=== PATIENT | female | born 1965 | race Caucasian/White ===

== ENCOUNTER → 2016-06-19 | Emergency (ER) | payer BC ==
[~2016-06-19] MED LIST: FAMOTIDINE 20 MG/50 ML IVPB 20 MG in PREMIX 50 IVPB ONE; FAMOTIDINE 20 MG/50 ML IVPB 50 ML IVPB ONE; MAG HYDROX/AL HYDROX/SIMETH 355 ML ORAL.SUSP PO ONE; ONDANSETRON 4 MG/2 ML VIAL IVPB ONE; ONDANSETRON 4 MG/2 ML VIAL ONE; SODIUM CHLORIDE 1,000 ML IV ONE
[2016-06-19 14:10] VITALS: BMI 28.5
[2016-06-19 15:18] LABS: BASOPHIL 0.4 % (0-2.0); EOSINOPHIL 0.5 % (0-4.5); MCH 28.1 pg (25.7-33.7); MCHC 32.7 g/dl (32.0-36.0); MEAN PLT VOLUME 8.6 fl (7.5-11.1); NEUTROPHILS 54.7 % (42.8-82.8); PLATELET COUNT 262 K/MM3 (134-434); RDW 15.5 % (11.6-15.6); WHITE BLOOD COUNT 6.9 K/mm3 (4.0-10.0)
[2016-06-19 15:40] LABS: ALBUMIN 3.7 g/dl (3.4-5.0); ANION GAP 7 (8-16); CALCIUM 8.8 mg/dL (8.5-10.1); CO2 30 mmol/L (21-32); CREATININE 0.9 mg/dL (0.55-1.02); GLUCOSE,RANDOM 90 mg/dL (74-106); SGOT/AST 15 U/L (15-37); SGPT/ALT 14 U/L (12-78)
[2016-06-19 15:44] LABS: ALK PHOS 107 U/L (45-117); BILIRUBIN,TOTAL 0.3 mg/dL (0.2-1.0); TOT PROT 7.3 g/dl (6.4-8.2); TROPONIN I < 0.02 ng/ml (0.00-0.05)
--- NOTE | 2016-06-19 16:03 | EKG ---
Test Reason : Blood Pressure : / mmHG Vent. Rate : 080 BPM Atrial Rate : 080 BPM P-R Int : 142 ms QRS Dur : 074 ms QT Int : 380 ms P-R-T Axes : 050 021 055 degrees QTc Int : 438 ms NORMAL SINUS RHYTHM NORMAL ECG NO PREVIOUS ECGS AVAILABLE Confirmed by DAVIS REY MD ([id number]) on 06/19/2016 4:03:34 PM Referred By: Confirmed By:DAVIS REY MD
--- NOTE | 2016-06-19 16:23 | PDOC ---
History of Present Illness <Zack Schroeder - Last Filed: 06/19/16 19:17> - General History Source: Patient Exam Limitations: No Limitations - History of Present Illness Initial Comments: 06/19/16 16:33 The patient is a 51-year-old woman, with a past medical history of hypertension and prediabetes who presents to the emergency department via walk-in for further evaluation of lightheadedness. Patient states she has been feeling lightheaded with associated abdominal pain/distension and nausea, specifically after eating. She recently moved from [place], approximately 1 month ago. She had a scheduled cholecystectomy but cancelled it, as she was in the process of moving to [place]. She is staying at her friend's house, but admits she is timid to perform bowel movements at her friend's house but she has been passing gas. She also reports endorsing an intermittent, non-productive cough and increased thirst. Patient states that her cough is slightly alleviated after taking cough drops. No recent fevers, chills, generalized weakness. No chest pain, palpitations, syncope, headache. No vomiting. No urinary symptoms. Allergies: No Known Drug Allergies. Past Surgical History: None reported. Social History: No tobacco, ETOH and recreational drug use. Primary Care Physician: N/A. Patient just moved from [place] 1 month ago. <Sandra Breen - Last Filed: 06/19/16 19:28> - General Chief Complaint: Lightheaded Stated Complaint: DIZZINESS VOMITING SOB Time Seen by Provider: 06/19/16 14:05 Past History - Past Medical History Diabetes: Yes (prediabetes) HTN: Yes - Psycho/Social/Smoking Cessation Hx Suicidal Ideation: No Smoking History: Never smoked <Zack Schroeder - Last Filed: 06/19/16 19:17> <Sandra Breen - Last Filed: 06/19/16 19:28> - Past Medical History Allergies/Adverse Reactions: Allergies Allergy/AdvReac Type Severity Reaction Status Date / Time animal dander Allergy Verified 06/19/16 14:05 Home Medications: Ambulatory Orders Mag Hydrox/Al Hydrox/Simeth [Mylanta Suspension -] 30 ml PO Q6H #1 bottle Ranitidine [Zantac -] 150 mg PO ONCE #14 tablet 06/19/16 Review of Systems - Review of Systems Able to Perform ROS?: Yes Comments:: 06/19/16 16:33 CONSTITUTIONAL: No reported: Fever, Chills, Diaphoresis, Generalized Weakness, Malaise, Loss of Appetite HEENT: No reported: Rhinorrhea, Nasal Congestion, Throat Pain, Throat Swelling, Difficulty Swallowing, Mouth Swelling, Ear Pain, Eye Pain, Visual Changes CARDIOVASCULAR: Reported: Lightheadedness. Dizziness. No reported: Chest Pain, Syncope, Palpitations, Irregular Heart Rate, Peripheral Edema RESPIRATORY: No reported: Cough, Shortness of Breath, SOB with Exertion, Orthopnea, Wheezing , Stridor, Hemoptysis GASTROINTESTINAL: Reported: Abdominal Pain. Abdominal Distenstion. No reported: Nausea, Vomiting , Diarrhea, Constipation, Melena, Hematochezia GENITOURINARY: No reported: Dysuria, Frequency, Urgency, Hesitancy, Flank Pain, Genital Pain MUSCULOSKELETAL: No reported: Myalgia, Arthralgia, Joint Swelling, Back pain, Neck Pain SKIN: No reported: Rash, Itching, Pallor HEMEATOLOGIC/IMMUNOLOGIC: No reported: Easy Bleeding, Easy Bruising, Lymphadenopathy, Frequent infections ENDOCRINE: No reported: Unexplained Weight Gain, Unexplained Weight Loss, Heat Intolerance , Cold Intolerance NEUROLOGIC: Reported: Lightheadedness. Dizziness. No reported: Headache, Focal Weakness, Paresthesias, Vertigo, Unsteady Gait, Seizure, Mental Status Changes, Incontinence PSYCHIATRIC: No reported: Anxiety, Depression <Sandra Breen - Last Filed: 06/19/16 19:28> *Physical Exam - Vital Signs Last Vital Signs Temp Pulse Resp BP Pulse Ox 98.6 F 89 16 143/102 97 06/19/16 14:05 06/19/16 14:05 06/19/16 14:05 06/19/16 14:05 06/19/16 14:05 <Zack Schroeder - Last Filed: 06/19/16 19:17> - Vital Signs Last Vital Signs Temp Pulse Resp BP Pulse Ox 98.6 F 89 16 143/102 97 06/19/16 14:05 06/19/16 14:05 06/19/16 14:05 06/19/16 14:05 06/19/16 14:05 - Physical Exam Comments: 06/19/16 16:33 GENERAL: The patient is awake, alert, and fully oriented, Nontoxic - in no acute distress. HEAD: Normocephalic, atraumatic. EYES: extraocular movements intact, sclera anicteric, conjunctiva clear. ENT: Normal voice, Moist mucous membranes. NECK: Normal range of motion, supple LUNGS: Breath sounds equal, clear to auscultation bilaterally. No wheezes, no rhonchi, no rales. HEART: Regular rate and rhythm, without murmur, rub or gallop. ABDOMEN: Soft, mild suprapubic tenderness to palpation. normoactive bowel sounds. No guarding, no rebound.No CVA tenderness EXTREMITIES: Normal range of motion, no edema. No clubbing or cyanosis. No cords, erythema, or tenderness. NEUROLOGICAL: No facial assymetry, Normal speech, PSYCH: Normal mood, normal affect. SKIN: Warm, Dry, normal turgor. <Sandra Breen - Last Filed: 06/19/16 19:28> Heart Score/ECG Review - ECG Impressions Comment:: 06/19/16 16:29 Twelve-lead EKG was performed and reviewed by me. There is normal sinus rhythm with a normal rate. Rate of 80 The axis is normal. The intervals are normal. There is normal R wave progression There are no ST or T wave abnormalities. Impression: Normal twelve-lead EKG <Zack Schroeder - Last Filed: 06/19/16 19:17> ED Treatment Course - LABORATORY CBC & Chemistry Diagram: 06/19/16 14:44 06/19/16 14:44 - ADDITIONAL ORDERS Additional order review: Laboratory Results 06/19/16 06/19/16 14:44 14:44 Sodium 138 Potassium 4.1 Chloride 101 Carbon Dioxide 30 Anion Gap 7 L BUN 12 Creatinine 0.9 Creat Clearance w eGFR > 60 Random Glucose 90 Calcium 8.8 Total Bilirubin 0.3 AST 15 ALT 14 Alkaline Phosphatase 107 Creatine Kinase 76 Troponin I < 0.02 Total Protein 7.3 Albumin 3.7 Lipase 207 Urine HCG, Qual Negative 06/19/16 14:44 RBC 4.68 MCV 86.0 MCHC 32.7 RDW 15.5 MPV 8.6 Neutrophils % 54.7 Lymphocytes % 38.0 Monocytes % 6.4 Eosinophils % 0.5 Basophils % 0.4 <Zack Schroeder - Last Filed: 06/19/16 19:17> - LABORATORY CBC & Chemistry Diagram: 06/19/16 14:44 06/19/16 14:44 - ADDITIONAL ORDERS Additional order review: Laboratory Results 06/19/16 06/19/16 14:44 14:44 Sodium 138 Potassium 4.1 Chloride 101 Carbon Dioxide 30 Anion Gap 7 L BUN 12 Creatinine 0.9 Creat Clearance w eGFR > 60 Random Glucose 90 Calcium 8.8 Total Bilirubin 0.3 AST 15 ALT 14 Alkaline Phosphatase 107 Creatine Kinase 76 Troponin I < 0.02 Total Protein 7.3 Albumin 3.7 Lipase 207 Urine HCG, Qual Negative 06/19/16 14:44 RBC 4.68 MCV 86.0 MCHC 32.7 RDW 15.5 MPV 8.6 Neutrophils % 54.7 Lymphocytes % 38.0 Monocytes % 6.4 Eosinophils % 0.5 Basophils % 0.4 - RADIOLOGY Radiograph Interpretation: 06/19/16 17:50 EXAM: RAD/CHEST X-RAY PORTABLE IMPRESSION: A frontal view of the chest was obtained. The cardiac silhouette is within normal limits in size. The lung is clear. Mediastinum and visualized osseous structures appear intact . <Sandra Breen - Last Filed: 06/19/16 19:28> Medical Decision Making - Medical Decision Making 06/19/16 16:20 51y F hx of cholelithiasis, pre diabetes, htn presents with feeling dizzy, nausesus and a bloating abdominal pain sensation - no associated fever/chills, cp, sob, focal neurolgic sypmtoms, leg swelling, diarrhea. on exam pt well apaering in no distress abdomen noted for mild suprapubic tenderness will obtain ua to r/o uti will give zofran, fluids willr eassess pt also endorses some cough - will obtain cxr to r/o mass/pna A portion of this note was documented by scribe services under my direction. I have reviewed the details of the note, within reason, and agree with the documentation with the following case summary and management plan written by me 06/19/16 17:41 The patient's vital signs are unremarkable Chest x-ray is negative pt feeling improved labs unremarkable 06/19/16 19:17 pt feeling improved susepect hersypmtoms may be secondary to indigestion will dc with pepcid/maalox and pmd fu return precautions were discussed I discussed the physical exam findings, ancillary test results and final diagnoses with the patient. I answered all of the patient's questions. The patient was satisfied with the care received and felt comfortable with the discharge plan and treatment plan. The patient will call their primary care physician within 24 hours to arrange follow-up and will return to the Emergency Department with any new, persistent or worsening symptoms. <Zack Schroeder - Last Filed: 06/19/16 19:17> *DC/Admit/Observation/Transfer - Discharge Dispostion Admit: No <Zack Schroeder - Last Filed: 06/19/16 19:17> - Attestations Scribe Attestion: 06/19/16 16:33 Documentation prepared by Sandra Breen, acting as internist medical doctor md for Zack Schroeder MD. <Sandra Breen - Last Filed: 06/19/16 19:28> Diagnosis at time of Disposition: Bloated abdomen - Prescriptions Prescriptions: Mag Hydrox/Al Hydrox/Simeth [Mylanta Suspension -] 30 ml PO Q6H #1 bottle Ranitidine [Zantac -] 150 mg PO ONCE #14 tablet - Referrals Referrals: [facility] [Provider Group] - Patient Instructions Printed Discharge Instructions: How to Avoid Gas, DI for Abdominal Pain-Adult Additional Instructions: Return to the emergency department immediately with ANY new, persistent or worsening symptoms including any recurrent abdominal pain, fevers, chills, inability to tolerate oral intake or any other concerns. Stay away from alcohol, spicy foods, caffeine, acidic/sour foods. Take maalox if you have burning for relief. Continue using zantac every night for one week. You MUST call and follow up with your doctor and [facility] at [facility] within 5 days for further evaluation of your symptoms. Results were discussed with you. Please make sure your doctor reviews the results of your emergency evaluation. Print Language: POLISH
[2016-06-19 17:21] LABS: URINE APPEARANCE CLEAR; URINE BILIRUBIN NEGATIVE (NEGATIVE); URINE BLOOD NEGATIVE (NEGATIVE); URINE COLOR STRAW; URINE GLUCOSE (UA) NEGATIVE (NEGATIVE); URINE KETONE NEGATIVE (NEGATIVE); URINE LEUK ESTERASE NEGATIVE (NEGATIVE); URINE NITRITE NEGATIVE (NEGATIVE); URINE PROTEIN NEGATIVE (NEGATIVE); URINE UROBILINOGEN NEGATIVE E.U./dl (0.2-1.0)
[2016-06-19 19:31] VITALS: BP 145/88; PULSE 73; TEMP 98.7
== END | disposition home or self-care (01) ==
LOC: JER 14:02
PROC: 3E0337Z Introduction of Electrolytic and Water Balance Substance into Peripheral Vein, Percutaneous Approach (ICD-10-PCS; principal; 2016-06-19)
PROC: 3E033GC Introduction of Other Therapeutic Substance into Peripheral Vein, Percutaneous Approach (ICD-10-PCS; 2016-06-19)
PROC: 3E033GC Introduction of Other Therapeutic Substance into Peripheral Vein, Percutaneous Approach (ICD-10-PCS; 2016-06-19)
DX: R14.0 Abdominal distension (gaseous) (principal); I10 Essential (primary) hypertension; R73.03 Prediabetes
CPT/HCPCS: 36415; 71010-TC; 80053; 81003; 82550; 83690; 84484; 84703; 85025; 93005; 93010; 99284-25

== ENCOUNTER 2016-09-09 11:53 | Emergency (ER) | payer BC, OTHER ==
[2016-09-09 11:57] VITALS: TEMP 98; BMI 26.7
[2016-09-09] MEDS ORDERED: ACETAMINOPHEN 325 MG TABLET (FP) PO ONE (13:47)
--- NOTE | 2016-09-09 13:47 | PDOC ---
History of Present Illness - History of Present Illness Initial Comments: 09/09/16 13:55 Patient is a 51 year old female with significant medical hx of HTN, prediabetes , seasonal allergies and allergic bronchitis who is presenting to the ED with two days of wheezing, cough, nasal congestion, left ear pain, and several episodes of posttussive emesis. Patient reports her cough is non-productive and she also endorses some epigastric pain. The patient was recently given a prescription for albuterol, however she stopped using it because it makes her nauseous. Denies fevers or chills. <Laila Cullen - Last Filed: 09/09/16 17:57> - General History Source: Patient <Rochelle Muir - Last Filed: 09/09/16 18:07> - General Chief Complaint: Shortness of Breath Stated Complaint: SOB/Abd pain Past History <Laila Cullen - Last Filed: 09/09/16 17:57> - Past Medical History Diabetes: Yes (prediabetes) HTN: Yes - Psycho/Social/Smoking Cessation Hx Suicidal Ideation: No Smoking History: Never smoked Information on smoking cessation initiated: No Hx Alcohol Use: No Drug/Substance Use Hx: No Substance Use Type: None <Rochelle Muir - Last Filed: 09/09/16 18:07> - Past Medical History Allergies/Adverse Reactions: Allergies Allergy/AdvReac Type Severity Reaction Status Date / Time animal dander Allergy Verified 09/09/16 11:57 Home Medications: Ambulatory Orders Mag Hydrox/Al Hydrox/Simeth [Mylanta Suspension -] 30 ml PO Q6H #1 bottle Ranitidine [Zantac -] 150 mg PO ONCE #14 tablet 06/19/16 Azithromycin 250 mg PO DAILY #4 tablet 09/09/16 Review of Systems - Review of Systems Comments:: 09/09/16 13:55 GENERAL/CONSTITUTIONAL: No fever or chills. No weakness. HEAD, EYES, EARS, NOSE AND THROAT: Nasal congestion, left ear pain. No change in vision. No sore throat. CARDIOVASCULAR: No chest pain or shortness of breath. RESPIRATORY: Cough, wheezing. No hemoptysis. GASTROINTESTINAL: Posttussive vomiting, epigastric pain. No nausea, diarrhea or constipation. GENITOURINARY: No dysuria, frequency, or change in urination. MUSCULOSKELETAL: No joint or muscle swelling or pain. No neck or back pain. ENDOCRINE: No increased thirst. No abnormal weight change. SKIN: No rash NEUROLOGIC: No headache, vertigo, loss of consciousness, or change in strength/ sensation. <Laila Cullen - Last Filed: 09/09/16 17:57> *Physical Exam - Vital Signs Last Vital Signs Temp Pulse Resp BP Pulse Ox 98 F 106 H 19 133/88 96 09/09/16 11:55 09/09/16 11:55 09/09/16 11:55 09/09/16 11:55 09/09/16 11:55 - Physical Exam Comments: GENERAL: Awake, alert, and fully oriented, in no acute distress HEAD: No signs of trauma EYES: PERRLA, EOMI, sclera anicteric, bilateral conjunctival injection ENT: Auricles normal inspection, hearing grossly normal, nares patent, posterior oropharynx cobblestoning with post nasal drip. TMs clear. Moist mucosa NECK: Normal ROM, supple, no lymphadenopathy, JVD, or masses LUNGS: Diffuse wheezing throughout. No crackles HEART: Regular rate and rhythm, normal S1 and S2, no murmurs, rubs or gallops ABDOMEN: Soft, nontender, normoactive bowel sounds. No guarding, no rebound. No masses EXTREMITIES: Normal range of motion, no edema. No clubbing or cyanosis. No cords, erythema, or tenderness NEUROLOGICAL: Cranial nerves II through XII grossly intact. Normal speech, normal gait SKIN: Warm, Dry, normal turgor, no rashes or lesions noted. HEMATOLOGIC/LYMPHATIC: No anemia, easy bleeding, or history of blood clots. ALLERGIC/IMMUNOLOGIC: No hives or skin allergy. <Laila Cullen - Last Filed: 09/09/16 17:57> - Vital Signs Last Vital Signs Temp Pulse Resp BP Pulse Ox 98 F 106 H 19 133/88 96 09/09/16 11:55 09/09/16 11:55 09/09/16 11:55 09/09/16 11:55 09/09/16 11:55 <Rochelle Muir - Last Filed: 09/09/16 18:07> ED Treatment Course - LABORATORY CBC & Chemistry Diagram: 09/09/16 14:00 09/09/16 14:00 - RADIOLOGY Radiograph Interpretation: 09/09/16 17:57 Chest X-Ray Impression: Linear and slightly patchy areas of increased density in the right lung base is consistent with atelectasis and/or infiltrate. Reported By: Richard Saleh MD <Laila Cullen - Last Filed: 09/09/16 17:57> - LABORATORY CBC & Chemistry Diagram: 09/09/16 14:00 09/09/16 14:00 <Rochelle Muir - Last Filed: 09/09/16 18:07> Medical Decision Making - Medical Decision Making 09/09/16 13:40 51 yo F with h/o seasonal allergies, currently using albuterol, recently moved from [place]. here c/o n/v wheezing sob. has had several episodes of post tussive fits and vomiting. subjective fevers, no rash. no chest pain. does have sinus congestion and ear fullness. no other complaints. no recent travel. no sick contacts. also c/o epigastric abd pain. on exam awake alert, bilat eye conj injection. lungs wtih bilateral wheezing and rhonci, heart RRR no m/r/g. abd soft NT ND ext wwp differential. allergic rhinitis, conjuntivits, bronchitis, gastritis, plan ivf, duonebs, cxr r/o pna, decongestant, benadryl. reglan for nausea and headache. reassess. recommene outpt flonase, zyrtec, and nebs. <Rochelle Muir - Last Filed: 09/09/16 18:07> *DC/Admit/Observation/Transfer - Attestations Scribe Attestion: 09/09/16 14:03 Documentation prepared by Laila Cullen, acting as chief medical physicist for Rochelle Muir MD. <Laila Cullen - Last Filed: 09/09/16 17:57> - Discharge Dispostion Admit: No <Rochelle Muir - Last Filed: 09/09/16 18:07> Diagnosis at time of Disposition: Bronchitis, Allergic rhinitis - Discharge Dispostion Disposition: HOME - Prescriptions Prescriptions: Azithromycin 250 mg PO DAILY #4 tablet - Patient Instructions Additional Instructions: take azithromycin 250 mg daily x 4 days starting 09/10/16. use albuterol inhaler 2 puffs every 4 hrs as needed for cough, wheezing. take zyrtec 5 mg daily to help wtih allergies. use flonase one puff intranasal daily ( its over the counter.) you should follow up with your primary doctor , call to schedule. return for any problems or concerns.
[2016-09-09] MEDS ORDERED: METOCLOPRAMIDE HCL INJECTION 10 MG/2 ML VIAL IVPB ONE (13:48)
[2016-09-09] MEDS ORDERED: SODIUM CHLORIDE 1,000 ML IV STA (13:48)
[2016-09-09] MEDS ORDERED: ALBUTEROL SO4 2.5/IPRATROPIUM 0.5 INH SOL 3 ML VIAL.NEB. NEB ONE ×2 (13:49→14:18)
[2016-09-09] MEDS ORDERED: ACETAMINOPHEN 325 MG TABLET (FP) ONE (13:52)
[2016-09-09] MEDS ORDERED: METOCLOPRAMIDE HCL INJECTION 10 MG/2 ML VIAL ONE (13:52)
[2016-09-09 14:11] LABS: URINE APPEARANCE CLEAR; URINE BILIRUBIN NEGATIVE (NEGATIVE); URINE BLOOD NEGATIVE (NEGATIVE); URINE COLOR LTYELLOW; URINE GLUCOSE (UA) NEGATIVE (NEGATIVE); URINE KETONE NEGATIVE (NEGATIVE); URINE LEUK ESTERASE NEGATIVE (NEGATIVE); URINE NITRITE NEGATIVE (NEGATIVE); URINE PROTEIN NEGATIVE (NEGATIVE); URINE UROBILINOGEN NEGATIVE E.U./dl (0.2-1.0)
[2016-09-09 14:20] LABS: RDW 14.8 % (11.6-15.6)
[2016-09-09 14:22] LABS: BASOPHIL 0.4 % (0-2.0); EOSINOPHIL 0.3 % (0-4.5); MCH 29.2 pg (25.7-33.7); MCHC 32.8 g/dl (32.0-36.0); MEAN PLT VOLUME 7.7 fl (7.5-11.1); NEUTROPHILS 88.6 % (42.8-82.8); PLATELET COUNT 246 K/MM3 (134-434); WHITE BLOOD COUNT 14.8 K/mm3 (4.0-10.0)
[2016-09-09 14:49] LABS: ALBUMIN 3.5 g/dl (3.4-5.0); ANION GAP 9 (8-16); CALCIUM 8.6 mg/dL (8.5-10.1); CO2 28 mmol/L (21-32); GLUCOSE,RANDOM 120 mg/dL (74-106); SGPT/ALT 12 U/L (12-78)
[2016-09-09 14:52] LABS: ALK PHOS 101 U/L (45-117); BILIRUBIN,TOTAL 0.4 mg/dL (0.2-1.0); CREATININE 0.8 mg/dL (0.55-1.02); TOT PROT 7.2 g/dl (6.4-8.2)
[2016-09-09 14:54] LABS: SGOT/AST 24 U/L (15-37)
[2016-09-09] MEDS ORDERED: AZITHROMYCIN 250 MG TABLET (FP) PO ONE (17:58)
[2016-09-09 18:16] VITALS: BP 113/71; PULSE 89
[2016-09-09] MEDS ORDERED: AZITHROMYCIN 250 MG TABLET (FP) ONE (18:17)
== END 2016-09-09 18:21 | disposition home or self-care (01) ==
LOC: JER 11:53
PROC: 3E0F7GC Introduction of Other Therapeutic Substance into Respiratory Tract, Via Natural or Artificial Opening (ICD-10-PCS; principal; 2016-09-09)
PROC: 3E033GC Introduction of Other Therapeutic Substance into Peripheral Vein, Percutaneous Approach (ICD-10-PCS; 2016-09-09)
DX: J40 Bronchitis, not specified as acute or chronic (principal); J30.2 Other seasonal allergic rhinitis; I10 Essential (primary) hypertension; E11.9 Type 2 diabetes mellitus without complications; Z79.84 Long term (current) use of oral hypoglycemic drugs
CPT/HCPCS: 36415; 71020-TC; 80053; 81003; 83690; 84703; 85025; 99282-25

== ENCOUNTER 2018-07-07 19:30 | Emergency (ER) | payer OTHER ==
[2018-07-07 19:55] VITALS: BP 168/87; PULSE 79; TEMP 98.2; BMI 26.5
--- NOTE | 2018-07-07 19:55 | PDOC ---
Rapid Medical Evaluation Time Seen by Provider: 07/07/18 19:52 Medical Evaluation: Allergies Allergy/AdvReac Type Severity Reaction Status Date / Time animal dander Allergy Verified 09/09/16 11:57 07/07/18 19:52 I have performed a brief in-person evaluation of this patient. The patient presents with a chief complaint of: lightheaded and dizzy Pertinent physical exam findings: EOMI, CN II-XII grossly intact. gait steady. I have ordered the following: urine, labs, ekg The patient will proceed to the ED for further evaluation. Discharge Disposition - Diagnosis Dizziness - Referrals - Patient Instructions - Post Discharge Activity
[2018-07-07 21:35] LABS: BASO % 0.3 % (0-2.0); EOS % 1.4 % (0-4.5); HEMOGLOBIN 14.6 GM/dL (10.7-15.3); LYMPH % 45.4 % (8-40); MCH 32.5 pg (25.7-33.7); MCHC 34.7 g/dl (32.0-36.0); MEAN CELL VOLUME 93.5 fl (80-96); MEAN PLT VOLUME 8.8 fl (7.5-11.1); MONO % 6.5 % (3.8-10.2); NEUT % 46.4 % (42.8-82.8); PLATELET COUNT 229 K/MM3 (134-434); RBC 4.49 M/mm3 (3.60-5.2); RDW 13.6 % (11.6-15.6); WHITE BLOOD COUNT 7.8 K/mm3 (4.0-10.0)
[2018-07-07 21:48] LABS: INR 0.97 (0.83-1.09); PROTHROMBIN TIME (PATIENT) 11.4 SEC (9.7-13.0)
[2018-07-07 22:05] LABS: ALK PHOS 121 U/L (45-117); ANION GAP 6 MMOL/L (8-16); BILIRUBIN,TOTAL 0.4 mg/dL (0.2-1); BLOOD UREA NITROGEN 18 mg/dL (7-18); CALCIUM 8.8 mg/dL (8.5-10.1); CHLORIDE 103 mmol/L (98-107); CO2 30 mmol/L (21-32); CREATININE 0.9 mg/dL (0.55-1.3); GLUCOSE,RANDOM 114 mg/dL (74-106); MAGNESIUM 1.9 mg/dL (1.8-2.4); POTASSIUM 3.7 mmol/L (3.5-5.1); SGOT/AST 18 U/L (15-37); SGPT/ALT 15 U/L (13-61); SODIUM 139 mmol/L (136-145); TOT PROT 7.8 g/dl (6.4-8.2)
--- NOTE | 2018-07-07 22:07 | PDOC ---
*Physical Exam - Vital Signs Last Vital Signs Temp Pulse Resp BP Pulse Ox 98.2 F 79 16 168/87 100 07/07/18 19:53 07/07/18 19:53 07/07/18 19:53 07/07/18 19:53 07/07/18 19:53 ED Treatment Course - LABORATORY CBC & Chemistry Diagram: 07/07/18 21:17 07/07/18 21:17 - ADDITIONAL ORDERS Additional order review: Laboratory Results 07/07/18 07/07/18 21:17 21:17 PT with INR 11.40 INR 0.97 Sodium 139 Potassium 3.7 Chloride 103 Carbon Dioxide 30 Anion Gap 6 L BUN 18 Creatinine 0.9 Creat Clearance w eGFR > 60 Random Glucose 114 H Calcium 8.8 Magnesium 1.9 Total Bilirubin 0.4 AST 18 ALT 15 Alkaline Phosphatase 121 H Creatine Kinase 123 Troponin I < 0.02 Total Protein 7.8 Albumin 4.0 07/07/18 21:17 RBC 4.49 MCV 93.5 MCHC 34.7 RDW 13.6 MPV 8.8 D Neutrophils % 46.4 D Lymphocytes % 45.4 H D Monocytes % 6.5 D Eosinophils % 1.4 D Basophils % 0.3 Medical Decision Making - Medical Decision Making 07/07/18 22:07 Patient seen by the advanced practice provider under my direct supervision. Ancillary testing reviewed as necessary. I agree with plan as outlined by the advanced practice provider. *DC/Admit/Observation/Transfer Diagnosis at time of Disposition: Hypertension Qualifiers: Hypertension type: essential hypertension Qualified Code(s): I10 - Essential ( primary) hypertension - Discharge Dispostion Disposition: HOME Condition at time of disposition: Stable - Referrals Referrals: Jeffery Pearson MD [Primary Care Provider] - 2 Days - Patient Instructions Printed Discharge Instructions: DI for High Blood Pressure Additional Instructions: Thank you for choosing [facility]. It was a pleasure taking care of you. Please be sure to follow-up with your doctor for better control of your blood pressure You may require adjustments in your medications Return to the Emergency Department if your symptoms worsen or persist, you have shortness of breath, chest pain, severe abdominal pain, vomiting, dizziness, weakness of extremities (arms and/or legs), changes in vision or walking or other concerning symptoms. - Post Discharge Activity
--- NOTE | 2018-07-07 23:15 | PDOC ---
History of Present Illness - General Chief Complaint: Blood Pressure Problem Stated Complaint: BP PROBLEM Time Seen by Provider: 07/07/18 19:52 History Source: Patient Exam Limitations: No Limitations Past History - Past Medical History Allergies/Adverse Reactions: Allergies Allergy/AdvReac Type Severity Reaction Status Date / Time animal dander Allergy Verified 07/07/18 19:55 Home Medications: Ambulatory Orders Mag Hydrox/Al Hydrox/Simeth [Mylanta Suspension -] 30 ml PO Q6H #1 bottle Ranitidine [Zantac -] 150 mg PO ONCE #14 tablet 06/19/16 Azithromycin 250 mg PO DAILY #4 tablet 09/09/16 Azithromycin 250 mg PO DAILY #4 tablet 09/09/16 COPD: No Diabetes: Yes (prediabetes) HTN: Yes - Suicide/Smoking/Psychosocial Hx Smoking History: Never smoked Have you smoked in the past 12 months: No Information on smoking cessation initiated: No Hx Alcohol Use: No Drug/Substance Use Hx: No Substance Use Type: None *Physical Exam - Vital Signs Last Vital Signs Temp Pulse Resp BP Pulse Ox 98.2 F 79 16 168/87 100 07/07/18 19:53 07/07/18 19:53 07/07/18 19:53 07/07/18 19:53 07/07/18 19:53 - Physical Exam General Appearance: No: Apparent Distress HEENT: positive: EOMI, TRISTAN Neck: positive: Supple Respiratory/Chest: positive: Lungs Clear, Normal Breath Sounds. negative: Respiratory Distress Cardiovascular: positive: Regular Rhythm, Regular Rate, S1, S2. negative: Murmur Gastrointestinal/Abdominal: positive: Normal Bowel Sounds, Soft. negative: Tender, Distended, Guarding, Rebound Integumentary: positive: Normal Color Neurologic: positive: staffing analyst II-XII NML intact, Fully Oriented, Alert, Normal Mood/ Affect, Normal Response, Motor Strength 5/5 Moderate Sedation - Procedure Monitoring Vital Signs: Procedure Monitoring Vital Signs Temperature 98.2 F 07/07/18 19:53 Pulse Rate 79 07/07/18 19:53 Respiratory Rate 16 07/07/18 19:53 Blood Pressure 168/87 07/07/18 19:53 O2 Sat by Pulse Oximetry (%) 100 07/07/18 19:53 ED Treatment Course - LABORATORY CBC & Chemistry Diagram: 07/07/18 21:17 07/07/18 21:17 - ADDITIONAL ORDERS Additional order review: Laboratory Results 07/07/18 07/07/18 21:17 21:17 PT with INR 11.40 INR 0.97 Sodium 139 Potassium 3.7 Chloride 103 Carbon Dioxide 30 Anion Gap 6 L BUN 18 Creatinine 0.9 Creat Clearance w eGFR > 60 Random Glucose 114 H Calcium 8.8 Magnesium 1.9 Total Bilirubin 0.4 AST 18 ALT 15 Alkaline Phosphatase 121 H Creatine Kinase 123 Troponin I < 0.02 Total Protein 7.8 Albumin 4.0 07/07/18 21:17 RBC 4.49 MCV 93.5 MCHC 34.7 RDW 13.6 MPV 8.8 D Neutrophils % 46.4 D Lymphocytes % 45.4 H D Monocytes % 6.5 D Eosinophils % 1.4 D Basophils % 0.3 Medical Decision Making - Medical Decision Making 53 y/o F hx of HTN, HLD, pre-DM presents with concern for elevated BP today. Patient takes Norvasc 5 mg daily and is compliant with her meds; she has been on this medication for 2 years. States her highest BP today was 148/123. She also had mild RAMOS and slight nausea. Denies vomiting, sob, cp, abd pain, visual/ gait changes, numbness/tingling/weakness of extremities. Denies smoking or drug use. BP here 168/87 Repeat BP was 161/99 Labs with no evidence of end organ damage Likely with HTN urgency Patient advised f/u with her PCP 07/07/18 23:11 *DC/Admit/Observation/Transfer Diagnosis at time of Disposition: Hypertension Qualifiers: Hypertension type: essential hypertension Qualified Code(s): I10 - Essential ( primary) hypertension - Discharge Dispostion Disposition: HOME Condition at time of disposition: Stable Decision to Admit order: No - Referrals Referrals: Jeffery Pearson MD [Primary Care Provider] - 2 Days - Patient Instructions Printed Discharge Instructions: DI for High Blood Pressure Additional Instructions: Thank you for choosing [facility]. It was a pleasure taking care of you. Please be sure to follow-up with your doctor for better control of your blood pressure You may require adjustments in your medications Return to the Emergency Department if your symptoms worsen or persist, you have shortness of breath, chest pain, severe abdominal pain, vomiting, dizziness, weakness of extremities (arms and/or legs), changes in vision or walking or other concerning symptoms. - Post Discharge Activity
== END 2018-07-07 23:56 | disposition home or self-care (01) ==
LOC: JER 19:30
DX: I10 Essential (primary) hypertension (principal); E78.5 Hyperlipidemia, unspecified; R73.03 Prediabetes
CPT/HCPCS: 36415; 71046-TC-FY; 80053; 82550; 83735; 84484; 85025; 85610; 99282-25

== ENCOUNTER 2019-07-09 12:59 | Emergency (ER) | payer OTHER ==
[2019-07-09 13:14] VITALS: BP 153/87; PULSE 93; TEMP 98.1; BMI 28.0
--- NOTE | 2019-07-09 13:51 | PDOC ---
Attending Attestation - Resident Resident Name: Romario Hill - HPI HPI: 07/09/19 14:32 Pt presents to the ED complaining of vision loss that started acutely today. Patient reports a "bubble" that is moving across her vision. States that while she is able to see what's in the bubble, her vision is blurrier and duller than it would normally be. Patient was able to continue to drive despite the disturbance in her vision. Denies pain. Denies other neurologic complaints. - Physicial Exam PE: 07/09/19 15:13 Agree with resident exam. Patient is alert and in no acute distress. EOMI. Visual acuity intact as per resident exam. Neuro: alert and oriented x 3, CN grossly intact, Ambulatory with normal gait. - Medical Decision Making 07/09/19 15:32 Pt presents to the ED complaining decreased vision. No concerning symptoms for amaneurosis fugax. No retinal detachment seen on US. Will spoke to ophtalmology and arrange for office visit today. Discharge - Discharge Information Problems reviewed: Yes Clinical Impression/Diagnosis: Left eye complaint Condition: Stable Disposition: HOME - Follow up/Referral Referrals: Harris Mcdonald MD [Staff Physician] - - Patient Discharge Instructions Additional Instructions: You were seen today for red flashing lights and a change in your vision in your left eye. This is not likely to be a brain stroke, but is likely to be something wrong with the eye itself. You are being sent to Dr. Koenig office for an emergency appointment at 2:40 on July 09, 2019. Security will drive you to the appointment. Return to the ED for new or worsening symptoms. Print Language: LATVIAN - Post Discharge Activity Work/Back to School Note: Back to Work
--- NOTE | 2019-07-09 13:51 | PDOC ---
History of Present Illness - General Chief Complaint: CVA/TIA Stated Complaint: LIGHTHEADED Time Seen by Provider: 07/09/19 13:21 History Source: Patient Exam Limitations: No Limitations - History of Present Illness Initial Comments: HPI: 54 y/o female presenting to [facility] ER complaining of a change in vision in her left eye for the past two days. Yesterday, the pt started to notice flashing red lights that moved across the visual field. Today, the flashing lights have become more intense and the pt now has a dark bubble in the middle of her vision. Pt denies any pain, eye discoloration, or foriegn body sensation. No h/o similar. 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 Medical Hx: - HTN - HLD - Prediabetic - Unknown congenital macular disease in R eye Review of Systems: In addition to that documented in the HPI above, the additional ROS was ob tained: Constitutional- Denies fevers or chills Head- Per HPI ENMT- Denies sore throat CV- Denies chest pain Resp- Denies SOB GI- Denies vomiting or diarrhea - Denies painful urination MSK- Denies recent trauma Skin- Denies new rashes Neuro- Denies new numbness or tingling or weakness Endocrine- Denies polyuria Heme- Denies bleeding or bruising Physical Examination: Vital signs and nursing notes reviewed. Constitutional- Adult female in no acute distress or obvious discomfort. Found standing up unassisted next to the hospital stretcher. Observed walking unassisted through the department unassisted. Answered all questions appropriately and completely. Head- Normocephalic. No obvious external signs of trauma. Eyes- Pupils 3mm and PERRL. EOMI. No vertical or horizontal nystagmus. Sclerae white. Conjunctiva moist and not injected. L eye vision: 25/20. No visual field cuts noted with visual field confrontation, although pt indicates the upper outer quadrant was more dark. Ears- Hearing grossly intact. Nose- No nasal discharge. Throat- Oral cavity and pharynx normal. No inflammation, swelling, exudate, or lesions. Teeth and gingiva in good general condition. Uvula midline. No tongue deviation. Neck- Supple, trachea is midline. Cardiovascular / Chest- Regular rate and regular rhythm. No murmur, rubs, clicks, or gallops. Peripheral pulses- radial pulses full. Respiratory- Breathing unlabored. Equal chest rise and fall. Clear to auscultation bilaterally. No stridor, no wheezing, no rhonchi. Neuro- Alert and oriented x4. Moving all four extremities spontaneously. No facial asymmetry. No slurred speech. No focal deficits. No upper or lower extremity drift. Cranial nerves intact. Sensation to all four extremities intact. Gait normal. Skin- Warm, dry, and intact. Psych- Affect- appropriate. Mood- normal. Speech was non-labored, non- pressured. MDM: NIH Stroke Scale/Score (NIHSS) RESULT SUMMARY: 0 points NIH Stroke Scale INPUTS: 1A: Level of consciousness > 0 = Alert; keenly responsive 1B: Ask month and age > 0 = Both questions right 1C: 'Blink eyes' & 'squeeze hands' > 0 = Performs both tasks 2: Horizontal extraocular movements > 0 = Normal 3: Visual colunga > 0 = No visual loss 4: Facial palsy > 0 = Normal symmetry 5A: Left arm motor drift > 0 = No drift for 10 seconds 5B: Right arm motor drift > 0 = No drift for 10 seconds 6A: Left leg motor drift > 0 = No drift for 5 seconds 6B: Right leg motor drift > 0 = No drift for 5 seconds 7: Limb Ataxia > 0 = No ataxia 8: Sensation > 0 = Normal; no sensory loss 9: Language/aphasia > 0 = Normal; no aphasia 10: Dysarthria > 0 = Normal 11: Extinction/inattention > 0 = No abnormality 54 y/o female presenting with painless, acute visual changes worsening over the past two days. Afebrile. Vitals unremarkable for hypotension or tachycardia. Physical exam as described above. Ophthalmic POCUS unremarkable for signs of r etinal detachment, vitreous hemorrhage, or dilated optic nerve diameter. Low suspicion for CVA vs atypical migraine vs acute angle glaucoma vs vitreous hemorrhage. Suspect possible acute retinal vein occlusion vs diabetic neuropathy vs macular degeneration vs acute retinal detachment. Scheduled emergency appointment through call center for immediately after discharge at Dr. Koenig office. Arranged transportation through hospital security given concern for pts ability to drive safely. Discussed physical exam findings with pt. Answered all questions. Provided return precautions. pt expressed verbal understanding and agreement with plan to discharge home with immediate clinic follow up. Romario Hill M.D., PGY2 Emergency Medicine Resident Past History - Past Medical History Allergies/Adverse Reactions: Allergies Allergy/AdvReac Type Severity Reaction Status Date / Time animal dander Allergy Verified 07/09/19 13:12 Home Medications: Ambulatory Orders Mag Hydrox/Al Hydrox/Simeth [Mylanta Suspension -] 30 ml PO Q6H #1 bottle 06/19/16 Ranitidine [Zantac -] 150 mg PO ONCE #14 tablet 06/19/16 Azithromycin 250 mg PO DAILY #4 tablet 09/09/16 Azithromycin 250 mg PO DAILY #4 tablet 09/09/16 COPD: No Diabetes: Yes (prediabetes) HTN: Yes - Psycho Social/Smoking Cessation Hx Smoking History: Never smoked Have you smoked in the past 12 months: No Hx Alcohol Use: No Drug/Substance Use Hx: No Substance Use Type: None *Physical Exam - Vital Signs Last Vital Signs Temp Pulse Resp BP Pulse Ox 98.1 F 93 H 16 153/87 99 07/09/19 13:12 07/09/19 13:12 07/09/19 13:12 07/09/19 13:12 07/09/19 13:12 Discharge - Discharge Information Problems reviewed: Yes Clinical Impression/Diagnosis: Left eye complaint Condition: Stable Disposition: HOME - Admission No - Follow up/Referral Referrals: Harris Mcdonald MD [Staff Physician] - - Patient Discharge Instructions Additional Instructions: You were seen today for red flashing lights and a change in your vision in your left eye. This is not likely to be a brain stroke, but is likely to be something wrong with the eye itself. You are being sent to Dr. Koenig office for an emergency appointment at 2:40 on July 09, 2019. Security will drive you to the appointment. Return to the ED for new or worsening symptoms. Print Language: SINHALA - Post Discharge Activity Work/Back to School Note: Back to Work
--- NOTE | 2019-07-10 11:27 | EKG ---
Test Reason : Blood Pressure : / mmHG Vent. Rate : 088 BPM Atrial Rate : 088 BPM P-R Int : 156 ms QRS Dur : 084 ms QT Int : 364 ms P-R-T Axes : 055 028 061 degrees QTc Int : 440 ms NORMAL SINUS RHYTHM NORMAL ECG WHEN COMPARED WITH ECG OF 19-JUN-2016 14:22, NO SIGNIFICANT CHANGE WAS FOUND Confirmed by MD Hankins Daniel ([id number]) on 07/10/2019 11:26:43 AM Referred By: Confirmed By:Nish Hankins MD
== END 2019-07-09 14:45 | disposition home or self-care (01) ==
LOC: JER 12:59
DX: H53.9 Unspecified visual disturbance (principal); J30.81 Allergic rhinitis due to animal (cat) (dog) hair and dander; R73.03 Prediabetes; I10 Essential (primary) hypertension
CPT/HCPCS: 93005; 93010; 99283-25

== ENCOUNTER 2021-03-26 17:49 | Observation (INO) | payer OTHER ==
[2021-03-26 18:16] VITALS: BMI 28.7
[2021-03-26] MEDS ORDERED: ASPIRIN 81 MG CHEWABLE TABLETS PO ONE (19:00)
[2021-03-26] MEDS ORDERED: ASPIRIN 81 MG CHEWABLE TABLETS ONE (19:09)
[2021-03-26 19:45] LABS: BASO % 0.2 % (0-2.0); EOS % 1.3 % (0-4.5); HEMATOCRIT 38.3 % (32.4-45.2); HEMOGLOBIN 12.9 GM/dL (10.7-15.3); LYMPH % 48.6 % (8-40); MCH 31.4 pg (25.7-33.7); MCHC 33.7 g/dl (32.0-36.0); MEAN PLT VOLUME 8.1 fl (7.5-11.1); MONO % 6.4 % (3.8-10.2); NEUT % 43.5 % (42.8-82.8); PLATELET COUNT 224 10^3/uL (134-434); RBC 4.12 M/mm3 (3.60-5.2); RDW 13.9 % (11.6-15.6); WHITE BLOOD COUNT 5.8 K/mm3 (4.0-10.0)
[2021-03-26 19:54] LABS: CHLORIDE 108 mmol/L (98-107); SODIUM 143 mmol/L (136-145)
[2021-03-26 19:56] LABS: CALCIUM 8.6 mg/dL (8.5-10.1)
[2021-03-26 19:57] LABS: ALBUMIN 3.3 g/dl (3.4-5.0); ANION GAP 6 MMOL/L (8-16); BLOOD UREA NITROGEN 14.2 mg/dL (7-18); CO2 29 mmol/L (21-32); GLUCOSE,RANDOM 149 mg/dL (74-106)
[2021-03-26] MEDS ORDERED: MAG HYDROX/AL HYDROX/SIMETH 30 ML UNIT-DOSE CUP PO ONE (19:57)
[2021-03-26] MEDS ORDERED: PANTOPRAZOLE SODIUM 40 MG VIAL IVPUSH ONE (19:57)
[2021-03-26 20:01] LABS: CREATININE 0.8 mg/dL (0.55-1.3)
[2021-03-26 20:02] LABS: BILIRUBIN,TOTAL 0.2 mg/dL (0.2-1); SGOT/AST 19 U/L (15-37); SGPT/ALT 17 U/L (13-61); TOT PROT 6.9 g/dl (6.4-8.2)
[2021-03-26 20:03] LABS: ALK PHOS 114 U/L (45-117)
[2021-03-26] MEDS ORDERED: MAG HYDROX/AL HYDROX/SIMETH 30 ML UNIT-DOSE CUP ONE (21:07)
[2021-03-26] MEDS ORDERED: PANTOPRAZOLE SODIUM 40 MG VIAL ONE (21:08)
[2021-03-26] MEDS ORDERED: LIDOCAINE PATCH REMOVAL MC SCH (22:00)
[2021-03-26] MEDS ORDERED: MAG HYDROX/AL HYDROX/SIMETH 30 ML UNIT-DOSE CUP PO PRN (22:50)
[2021-03-27] MEDS: PANTOPRAZOLE 40 MG TABLET PO SCH ×2 (00:40→09:41)
[2021-03-27 08:42] LABS: BASO % 0.3 % (0-2.0); EOS % 1.6 % (0-4.5); HEMATOCRIT 36.7 % (32.4-45.2); HEMOGLOBIN 12.4 GM/dL (10.7-15.3); LYMPH % 53.6 % (8-40); MCH 31.9 pg (25.7-33.7); MCHC 33.9 g/dl (32.0-36.0); MEAN CELL VOLUME 93.8 fl (80-96); MEAN PLT VOLUME 8.8 fl (7.5-11.1); NEUT % 37.5 % (42.8-82.8); PLATELET COUNT 214 10^3/uL (134-434); RBC 3.91 M/mm3 (3.60-5.2); RDW 13.7 % (11.6-15.6); WHITE BLOOD COUNT 5.2 K/mm3 (4.0-10.0)
[2021-03-27 09:08] LABS: CHLORIDE 109 mmol/L (98-107); SODIUM 144 mmol/L (136-145)
[2021-03-27 09:19] LABS: CALCIUM 8.4 mg/dL (8.5-10.1); GLUCOSE,RANDOM 115 mg/dL (74-106)
[2021-03-27 09:20] LABS: ALBUMIN 2.9 g/dl (3.4-5.0); ANION GAP 6 MMOL/L (8-16); BLOOD UREA NITROGEN 15.4 mg/dL (7-18); CO2 28 mmol/L (21-32); MAGNESIUM 2.2 mg/dL (1.8-2.4)
[2021-03-27 09:22] LABS: CHOLESTEROL 248 mg/dL (50-200); CREATININE 0.9 mg/dL (0.55-1.3); PHOSPHOROUS 3.4 mg/dL (2.5-4.9); SGOT/AST 16 U/L (15-37); SGPT/ALT 13 U/L (13-61); TOT PROT 6.2 g/dl (6.4-8.2); TRIGLYCERIDES 220 mg/dL (0-150)
[2021-03-27 09:23] LABS: BILIRUBIN,TOTAL 0.2 mg/dL (0.2-1); LDL CHOLESTEROL (ONLY SJRH) 164 mg/dL (5-100)
[2021-03-27 09:24] LABS: ALK PHOS 92 U/L (45-117); HDL CHOLESTEROL 33 mg/dL (40-60)
[2021-03-27 09:56] VITALS: BP 146/72; PULSE 68; TEMP 97.7
[2021-03-27] MEDS ORDERED: ENOXAPARIN NA (PORCINE) 40 MG/0.4 ML DISP.SYRIN SQ SCH (10:00)
[2021-03-27] MEDS ORDERED: amLODIPine BESYLATE 5 MG TABLET (FP) PO SCH (10:00)
[2021-03-27] MEDS ORDERED: HYDROCHLOROTHIAZIDE 25 MG TABLET (FP) PO SCH (10:00)
[2021-03-27] MEDS ORDERED: LIDOCAINE 5% TOPICAL PATCH TP SCH (10:00)
== END 2021-03-27 11:37 | disposition home or self-care (01) ==
LOC: JER 17:49 → OBSVTOIN 21:18 → JERBED 21:18 → J4S 03-27 02:32
PROVIDERS: ATTEND Family Medicine
PROC: 3E023GC Introduction of Other Therapeutic Substance into Muscle, Percutaneous Approach (ICD-10-PCS; principal; 2021-03-26)
PROC: 3E033GC Introduction of Other Therapeutic Substance into Peripheral Vein, Percutaneous Approach (ICD-10-PCS; 2021-03-26)
DX: J30.81 Allergic rhinitis due to animal (cat) (dog) hair and dander (principal); I10 Essential (primary) hypertension; E78.5 Hyperlipidemia, unspecified; R73.03 Prediabetes; H54.40 Blindness, one eye, unspecified eye; K21.9 Gastro-esophageal reflux disease without esophagitis
CPT/HCPCS: 36415; 71046-TC-FY; 80053; 80061; 82550; 83036; 83735; 84100; 84443; 84484; 85025; 93005; 93010; 96372; 96374; 99285-25; C9803; U0003; U0005